=== PATIENT | male | born 1970 | race Caucasian/White ===

== ENCOUNTER → 2017-05-05 | Outpatient (CLI) | payer BC ==
[2017-05-05 16:09] LABS: Basophils # (A) 0.1 k/uL (0-0.2); Basophils % (A) 1 %; Cholesterol 201 mg/dL (<200); Eosinophils # (A) 0.2 k/uL (0-0.7); Eosinophils % (A) 2 %; HCT 45.9 % (39.0-53.0); HDL Cholesterol 27 mg/dL (40-60); HGB 15.7 gm/dL (13.0-17.5); Lymphocytes # (A) 2.9 k/uL (1.0-4.8); Lymphocytes % (A) 36 %; MCH 28.6 pg (25.0-35.0); MCHC 34.2 g/dL (31.0-37.0); MCV 83.6 fL (80.0-100.0); Monocytes # (A) 0.4 k/uL (0-1.0); Monocytes % (A) 5 %; Neutrophils # (A) 4.4 k/uL (1.3-7.7); Neutrophils % (A) 55 %; Platelet Count 211 k/uL (150-450); RDW 13.4 % (11.5-15.5)
[2017-05-05 16:17] LABS: Triglycerides 662 mg/dL (<150)
[2017-05-05 17:13] LABS: ALT 152 U/L (21-72); AST 65 U/L (17-59); Albumin 4.6 g/dL (3.5-5.0); Alkaline Phosphatase 83 U/L (38-126); Anion Gap 11 mmol/L; Blood Urea Nitrogen 15 mg/dL (9-20); Calcium 9.7 mg/dL (8.4-10.2); Carbon Dioxide 27 mmol/L (22-30); Chloride 99 mmol/L (98-107); Glucose 165 mg/dL (74-99); Potassium 4.1 mmol/L (3.5-5.1); Sodium 137 mmol/L (137-145); Total Bilirubin 1.1 mg/dL (0.2-1.3); Total Protein 7.4 g/dL (6.3-8.2)
[2017-05-06 01:44] LABS: Hemoglobin A1C 9.2 % (4.0-6.0)
== END | disposition home or self-care (01) ==
LOC: LABWHC1 15:44
PROVIDERS: ATTEND Physician Assistant Medical
DX: E11.9 Type 2 diabetes mellitus without complications (principal); I10 Essential (primary) hypertension
CPT/HCPCS: 36415; 80053; 80061; 82043; 82570; 83036; 84443; 85025

== ENCOUNTER → 2017-06-17 | Outpatient (CLI) | payer BC ==
--- NOTE | 2017-06-17 11:57 | US ---
EXAMINATION TYPE: US abdomen complete DATE OF EXAM: 06/17/2017 COMPARISON: NONE CLINICAL HISTORY: R94.5 abnormal results of liver function studies. EXAM MEASUREMENTS: Liver Length: 18.7 cm Gallbladder Wall: 0.2 cm CBD: 0.2 cm Spleen: 14.7 cm Right Kidney: 12.5 x 5.8 x 5.3 cm Left Kidney: 12.7 x 6.9 x 5.3 cm Large body habitus. Pancreas: Obscured by bowel gas Liver: unable to penetrate, decreased visualization of vessels Gallbladder: anterior echogenic foci with comet tail artifact, small echogenic foci possible stone, possible sludge, limited views due to body habitus Evidence for sonographic Cardoza's sign: no CBD: very limited visualization Spleen: enlarged Right Kidney: possible mass mid, measuring 3.1 x 2.6 x 3.2cm, inferior cyst measuring 1.7 x 1.5 x 1.5cm Left Kidney: No hydronephrosis or masses seen Upper IVC: not well seen due to limitations Abd Aorta: bifurcation obscured by overlying bowel gas The visualized liver is heterogeneously hyperechoic. Evaluation for focal mass suboptimal due to the heterogeneity. The intrahepatic portion of the IVC and visualized abdominal aorta are within normal limits. The gallbladder is poorly visualized. Comment tail artifact could reflect focal cholesterolos is. No shadowing mobile gallstones are seen. Dependent density could reflect small degree of gallblad tom sludge. Common bile duct is unremarkable. The visualized pancreas is slightly heterogeneous. Po rtions are obscured by overlying bowel gas on images saved. The spleen is enlarged without suspicious focal intrasplenic mass. There is isoechoic area centrally right kidney favoring prominent cortex, s olid mass felt less likely but not excluded. No hydronephrosis is evident bilaterally IMPRESSION: 1. Suboptimal study, marked heterogeneous poorly penetrated liver could reflect prominent fatty infil tration or underlying hepatocellular disease. Imaging guided random biopsy can be performed to furthe r evaluate if desired. No ascites is seen. Splenomegaly however is noted. 2. Suspect lobulated cortex right kidney, solid 3.0 cm mass not excluded. Advise further workup with renal protocol contrast-enhanced CT or MRI. This also could evaluate additional abdominal structures poorly visualized on this study.
== END ==
LOC: RADUSWWP 07:26
PROVIDERS: ATTEND Family Medicine
DX: R16.1 Splenomegaly, not elsewhere classified (principal); E78.1 Pure hyperglyceridemia
CPT/HCPCS: 76700

== ENCOUNTER 2018-11-08 07:02 | Day surgery (SDC) | payer BC ==
[2018-11-07 09:47] VITALS: BMI 32.1
[~2018-11-08 07:02] MED LIST: LACTATED RINGERS 1,000 ML IV SCH; LIDOCAINE 1% 20 ML VIAL (10MG/ML) FOR IV START INTRADERMA PRN
[2018-11-08 07:17] VITALS: TEMP 97.1
[2018-11-08] MEDS ORDERED: LACTATED RINGERS 1,000 ML IV ONE ×2 (07:25)
[2018-11-08 07:27] LABS: Glucose,Whole Blood 137 mg/dL (75-99)
[2018-11-08] MEDS ORDERED: PROPOFOL 10 MG/ML 20 ML VIAL IV ONE (07:44)
--- NOTE | 2018-11-08 07:54 | P.GSHP ---
History of Present Illness H&P Date: 11/08/18 Chief Complaint: Screening colonoscopy This 48-year-old male who presents today for screening colonoscopy. Patient denies a significant GI complaints. Past Medical History Past Medical History: Diabetes Mellitus, Hyperlipidemia, Hypertension History of Any Multi-Drug Resistant Organisms: None Reported Past Surgical History: Orthopedic Surgery Additional Past Surgical History / Comment(s): left foot surgery to shorten bone in little toe, Past Anesthesia/Blood Transfusion Reactions: No Reported Reaction Smoking Status: Current every day smoker - Past Family History Father Family Medical History: Cancer Additional Family Medical History / Comment(s): pancreatic Mother Family Medical History: Deep Vein Thrombosis (DVT) Medications and Allergies Home Medications Medication Instructions Recorded Confirmed Type Ertugliflozin Pidolate [Steglatro] 15 mg PO DAILY 11/07/18 11/07/18 History Losartan Potassium [Cozaar] 100 mg PO DAILY 11/07/18 11/07/18 History amLODIPine [Norvasc] 5 mg PO DAILY 11/07/18 11/07/18 History metFORMIN HCL 1,000 mg PO QAM 11/07/18 11/07/18 History metFORMIN HCL 500 mg PO 1830 11/07/18 11/07/18 History sitaGLIPtin PHOSPHATE [Januvia] 100 mg PO DAILY 11/07/18 11/07/18 History Allergies Allergy/AdvReac Type Severity Reaction Status Date / Time hydromorphone [From Dilaudid] Allergy Severe Dyspnea Verified 11/07/18 09:38 Surgical - Exam Vital Signs Temp Pulse Resp BP Pulse Ox 97.1 F L 75 18 172/90 97 11/08/18 07:16 11/08/18 07:16 11/08/18 07:16 11/08/18 07:16 11/08/18 07:16 - General well developed, well nourished, no distress - Eyes PERRL - ENT normal pinna - Neck no masses - Respiratory normal expansion - Cardiovascular Rhythm: regular - Abdomen Abdomen: soft, non tender Results - Labs Abnormal Lab Results - Last 24 Hours (Table) 11/08/18 Range/Units 07:22 POC Glucose (mg/dL) 137 H (75-99) mg/dL Assessment and Plan Assessment: We'll perform screening colonoscopy.
--- NOTE | 2018-11-08 08:07 | P.OP ---
Date of Procedure: 11/08/18 Preoperative Diagnosis: Screening colonoscopy Postoperative Diagnosis: Normal colon Procedure(s) Performed: Colonoscopy Anesthesia: MAC Surgeon: Hal Clark Pathology: none sent Condition: stable Disposition: PACU Description of Procedure: PROCEDURE: The patient was placed on the endoscopy table in the lateral position. Digital rectal examination was performed which revealed no abnormalities. The prostate was symmetrical without nodules. Flexible colonoscope was then placed in the patient's anus and passed throughout the entire colon. The ileocecal valve was visualized. The cecum, ascending, transverse, descending and sigmoid colon were normal. The rectum was normal as well. There were no masses, polyps or diverticula noted in the entire colon. SUMMARY OF FINDINGS: Normal colonoscopy.
[2018-11-08 08:17] VITALS: RESP 16
[2018-11-08 08:33] VITALS: BP 137/93; PULSE 67
== END 2018-11-08 08:42 | disposition home or self-care (01) ==
LOC: ORWHC2ENDO 07:02
PROVIDERS: ATTEND Surgery
DX: Z12.11 Encounter for screening for malignant neoplasm of colon (principal); E11.9 Type 2 diabetes mellitus without complications; E78.5 Hyperlipidemia, unspecified; I10 Essential (primary) hypertension; F17.200 Nicotine dependence, unspecified, uncomplicated; Z80.0 Family history of malignant neoplasm of digestive organs; Z84.89 Family history of other specified conditions; Z79.84 Long term (current) use of oral hypoglycemic drugs; Z79.899 Other long term (current) drug therapy; Z88.5 Allergy status to narcotic agent
CPT/HCPCS: J2704; G0121

== ENCOUNTER → 2018-11-20 | Outpatient (CLI) | payer BC ==
[2018-11-20 15:32] LABS: Basophils # (A) 0.2 k/uL (0-0.2); Basophils % (A) 1 %; Eosinophils # (A) 0.2 k/uL (0-0.7); Eosinophils % (A) 2 %; HCT 52.3 % (39.0-53.0); HGB 17.5 gm/dL (13.0-17.5); Lymphocytes # (A) 2.9 k/uL (1.0-4.8); Lymphocytes % (A) 25 %; MCH 29.1 pg (25.0-35.0); MCHC 33.4 g/dL (31.0-37.0); MCV 87.2 fL (80.0-100.0); Mean Platelet Volume 8.4; Monocytes # (A) 0.5 k/uL (0-1.0); Monocytes % (A) 4 %; Neutrophils # (A) 8.1 k/uL (1.3-7.7); Neutrophils % (A) 67 %; Platelet Count 203 k/uL (150-450); RBC 5.99 m/uL (4.30-5.90); RDW 13.8 % (11.5-15.5)
[2018-11-21 01:09] LABS: Hemoglobin A1C 6.6 % (4.0-6.0)
[2018-11-21 01:28] LABS: Albumin 4.9 g/dL (3.80-4.90); Albumin/Globulin Ratio 2.58 (1.60-3.17); Anion Gap 17.9 mmol/L (4.00-12.00); BUN/Creat Ratio 15.56 Ratio (12.00-20.00); Carbon Dioxide 22.1 mmol/L (21.6-31.8); Chol/HDL Ratio 6.11; Globulin 1.9 g/dL (1.6-3.3); LDL Cholesterol,Calculated 123.2 mg/dL (0.0-131.0); Total Bilirubin 0.7 mg/dL (0.2-1.2); Total Protein 6.8 g/dL (6.2-8.2); VLDL Calculation 55.8 mg/dL (5.00-40.00)
[2018-11-21 01:37] LABS: T4, Free (Free Thyroxine) 1.2 ng/dL (0.80-1.80)
== END | disposition home or self-care (01) ==
LOC: LABWHC1 14:41
PROVIDERS: ATTEND Internal Medicine Endocrinology, Diabetes & Metabolism
DX: Z00.00 Encounter for general adult medical examination without abnormal findings (principal); I10 Essential (primary) hypertension; E78.00 Pure hypercholesterolemia, unspecified; E11.65 Type 2 diabetes mellitus with hyperglycemia; Z12.5 Encounter for screening for malignant neoplasm of prostate
CPT/HCPCS: 36415; 80053; 80061; 82043; 82570; 83036; 84153; 84439; 84443; 85025

== ENCOUNTER 2021-01-08 08:51 | Emergency (ER) | payer BC ==
--- NOTE | 2021-01-08 09:32 | ED ---
General Adult HPI - General Chief complaint: Recheck/Abnormal Lab/Rx Stated complaint: Covid + Time Seen by Provider: 01/08/21 09:07 Source: patient, RN notes reviewed Mode of arrival: ambulatory Limitations: no limitations - History of Present Illness Initial comments: This is a 50-year-old male presents emergency Department chief complaint of COVID-19 positive. Patient states that he tested positive few days ago. Patient states that he needs on-call antibodies. Patient's had prior vaccine. Patient states symptoms are very mild. Denies any chest pain minimal shortness breath mild cough congestion. - Related Data Home Medications Medication Instructions Recorded Confirmed Ertugliflozin Pidolate [Steglatro] 15 mg PO DAILY 11/07/18 11/07/18 Losartan Potassium [Cozaar] 100 mg PO DAILY 11/07/18 11/07/18 amLODIPine [Norvasc] 5 mg PO DAILY 11/07/18 11/07/18 metFORMIN HCL 1,000 mg PO QAM 11/07/18 11/07/18 metFORMIN HCL 500 mg PO 1830 11/07/18 11/07/18 sitaGLIPtin PHOSPHATE [Januvia] 100 mg PO DAILY 11/07/18 11/07/18 Allergies Allergy/AdvReac Type Severity Reaction Status Date / Time hydromorphone [From Dilaudid] Allergy Severe Dyspnea Verified 01/08/21 09:04 Review of Systems ROS Statement: Those systems with pertinent positive or pertinent negative responses have been documented in the HPI. ROS Other: All systems not noted in ROS Statement are negative. Past Medical History Past Medical History: Diabetes Mellitus, Hyperlipidemia, Hypertension History of Any Multi-Drug Resistant Organisms: None Reported Past Surgical History: Orthopedic Surgery Additional Past Surgical History / Comment(s): left foot surgery to shorten bone in little toe, Past Anesthesia/Blood Transfusion Reactions: No Reported Reaction Past Psychological History: No Psychological Hx Reported Smoking Status: Current every day smoker Past Alcohol Use History: Occasional Past Drug Use History: None Reported - Past Family History Father Family Medical History: Cancer Additional Family Medical History / Comment(s): pancreatic Mother Family Medical History: Deep Vein Thrombosis (DVT) General Exam Limitations: no limitations General appearance: alert, in no apparent distress Head exam: Present: atraumatic, normocephalic, normal inspection Eye exam: Present: normal appearance, PERRL, EOMI. Absent: scleral icterus, conjunctival injection, periorbital swelling ENT exam: Present: normal exam, mucous membranes moist Neck exam: Present: normal inspection, full ROM. Absent: tenderness, meni ngismus, lymphadenopathy Respiratory exam: Present: normal lung sounds bilaterally. Absent: respiratory distress, wheezes, rales, rhonchi, stridor Cardiovascular Exam: Present: regular rate, normal rhythm, normal heart sounds. Absent: systolic murmur, diastolic murmur, rubs, gallop, clicks Course Vital Signs 01/08/21 09:04 Temperature 99.1 F Pulse Rate 82 Respiratory 18 Rate Blood Pressure 108/106 O2 Sat by Pulse 98 Oximetry Medical Decision Making - Medical Decision Making Patient will receive monoclonal antibodies, discharged stable condition. Disposition Clinical Impression: COVID-19 Disposition: HOME SELF-CARE Condition: Stable Instructions (If sedation given, give patient instructions): Coronavirus Disease 2019 (COVID-19) Additional Instructions: Please return to the Emergency Department if symptoms worsen or any other concerns. Is patient prescribed a controlled substance at d/c from ED?: No Referrals: Nolberto Pulido MD [Primary Care Provider] - 1-2 days Time of Disposition: 09:31
[2021-01-08] MEDS ORDERED: CASIRIVIMAB/IMDEVIMAB (EUA) 1,200 MG in SODIUM CHLORIDE 0.9% 100 ML IVPB ONE (10:00)
[2021-01-08] MEDS ORDERED: SODIUM CHLORIDE 0.9% 50 ML IVPB ONE (10:30)
[2021-01-08 13:01] VITALS: BP 158/77; PULSE 82; RESP 16; TEMP 98.7
== END 2021-01-08 12:50 | disposition home or self-care (01) ==
LOC: EC 08:51
DX: U07.1 COVID-19 (principal); E11.9 Type 2 diabetes mellitus without complications; E78.5 Hyperlipidemia, unspecified; I10 Essential (primary) hypertension; F17.200 Nicotine dependence, unspecified, uncomplicated; Z79.84 Long term (current) use of oral hypoglycemic drugs; Z88.5 Allergy status to narcotic agent
CPT/HCPCS: 96365; 99284 ×2; M0243; Q0243

== ENCOUNTER → 2023-03-31 | Outpatient (CLI) | payer BC ==
--- NOTE | 2023-03-31 09:40 | CTL ---
EXAMINATION TYPE: CT Low Dose Lung DATE OF EXAM ORDERED: 03/31/2023 HISTORY: . Lung cancer screening CT DLP: 163.[address] CTDI: 4.3 mGy Automated exposure control for dose reduction was used. SCREENING VISIT: Initial COMPARISON: None TECHNIQUE: Low dose computed tomography scan was performed through the chest at 1 mm thick sections a nd reconstructed images in the coronal plane at [address] DIAGNOSTIC QUALITY: Satisfactory FINDINGS: LUNG NODULES: None. LUNGS: COPD: Severity: None Fibrosis: Severity: None Lymph nodes: None Other findings: None RIGHT PLEURAL SPACE: Effusion: None Calcification: None Thickening: None Pneumothorax: None LEFT PLEURAL SPACE: Effusion: None Calcification: None Thickening: None Pneumothorax: None HEART: Heart Size: Normal Coronary calcification: Minimal Pericardial effusion: None OTHER FINDINGS: Upper abdomen: Normal Bony thorax: Normal Supraclavicular region: Normal Other: Ascending thoracic aorta at the level the main pulmonary artery measures 3.9 cm. The main pul monary artery at the bifurcation measures 3.3 cm. IMPRESSION: 1. No suspicious changes for primary or metastatic neoplasm. FOLLOW UP CT CHEST RECOMMENDATION: Follow-up low-dose CT chest 1 CT LUNG RAD: Lung-Rad 1 Negative
== END | disposition home or self-care (01) ==
LOC: RADCTMAIN 06:44
PROVIDERS: ATTEND Family Medicine
DX: Z12.2 Encounter for screening for malignant neoplasm of respiratory organs (principal); Z87.891 Personal history of nicotine dependence
CPT/HCPCS: 71271

== ENCOUNTER → 2023-04-04 | Outpatient (CLI) | payer BC ==
[2023-04-04 10:47] LABS: Basophils # (A) 0.12 X 10*3/uL (0.00-0.10); Basophils % (A) 1.5 %; Eosinophils # (A) 0.24 X 10*3/uL (0.04-0.35); HCT 49.3 % (39.6-50.0); HGB 16.4 g/dL (13.0-17.0); Lymphocytes # (A) 2.58 X 10*3/uL (0.90-5.00); Lymphocytes % (A) 32.2 %; MCH 28.1 pg (27.0-32.0); MCHC 33.3 g/dL (32.0-37.0); MCV 84.4 FL (80.0-97.0); Mean Platelet Volume 10.7 FL (9.5-12.2); Monocytes # (A) 0.46 X 10*3/uL (0.20-1.00); Monocytes % (A) 5.7 %; NRBC Per 100 WBC 0 X 10*3/uL (0.00-0.01); Neutrophils # (A) 4.57 X 10*3/uL (1.80-7.70); Neutrophils % (A) 57.1 %; Platelet Count 202 X 10*3/uL (140-440); RBC 5.84 X 10*6/uL (4.40-5.60); RDW 13.4 % (11.5-14.5); WBC 8.01 X 10*3/uL (4.50-10.00)
[2023-04-04 11:19] LABS: ALT 87 U/L (10-49); AST 35 U/L (14-35); Albumin 4.6 g/dL (3.8-4.9); Albumin/Globulin Ratio 1.84 Ratio (1.60-3.17); Alkaline Phosphatase 67 U/L (41-126); Blood Urea Nitrogen 23.1 mg/dL (9.0-27.0); Calcium 9.5 mg/dL (8.7-10.3); Carbon Dioxide 24.6 mmol/L (21.6-31.8); Chloride 100 mmol/L (96-109); Chol/HDL Ratio 8.19 Ratio; Globulin 2.5 g/dL (1.6-3.3); Glucose 179 mg/dL (70-110); Potassium 4.7 mmol/L (3.5-5.5); Prostate Specific Antigen 0.98 ng/mL (0.000-3.500); Sodium 137 mmol/L (135-145); Total Bilirubin 0.4 mg/dL (0.3-1.2); Total Protein 7.1 g/dL (6.2-8.2)
== END | disposition home or self-care (01) ==
LOC: LABWHC1 07:09
PROVIDERS: ATTEND Family Medicine
DX: Z12.5 Encounter for screening for malignant neoplasm of prostate (principal); I10 Essential (primary) hypertension; E78.5 Hyperlipidemia, unspecified; E11.9 Type 2 diabetes mellitus without complications
CPT/HCPCS: 36415; 80053; 80061; 83036; 83721; 84153; 84443; 85025